=== PATIENT | male | born 1995 | race Caucasian/White ===

== ENCOUNTER 2017-05-14 22:30 | Emergency (ER) | payer SELFPAY ==
[~2017-05-14] VITALS: Ht 188 cm; Wt 111.1 kg
[2017-05-14 22:41] VITALS: BP 135/78
[2017-05-14 22:50] VITALS: BP 135/78
--- NOTE | 2017-05-14 22:50 | NUR ---
TO LOBBY, A/W BED, VSAditya, TEODORA , ERMRick NOTED
--- NOTE | 2017-05-14 23:00 | NUR ---
PATIENT LEFT WITHOUT BEING SEEN BY DR. Franco. NO FURTHER CARE PROVIDED FOR PATIENT.
== END 2017-05-14 23:00 | disposition left against medical advice (07) ==
LOC: MED 22:30
DX: F41.9 Anxiety disorder, unspecified (principal); Z53.21 Procedure and treatment not carried out due to patient leaving prior to being seen by health care provider